=== PATIENT | male | born 1990 | race Caucasian/White ===

== ENCOUNTER 2019-01-29 23:04 | Emergency (ER) | payer SELFPAY ==
[2019-01-29 23:10] VITALS: BP 140/84; PULSE 100; TEMP 98; BMI 31.3
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
[2019-01-30] MEDS ORDERED: ACETAMINOPHEN 500 MG TABLET (FP) PO ONE (00:11)
--- NOTE | 2019-01-30 00:13 | PDOC ---
Attending Attestation - Resident Resident Name: Melecio Adan - ED Attending Attestation I have performed the following: I have examined & evaluated the patient, The case was reviewed & discussed with the resident, I agree w/resident's findings & plan, Exceptions are as noted - HPI HPI: 01/30/19 00:12 R hamstring px after soccer injury - Physicial Exam PE: 01/30/19 00:13 Agree with exam as documented by resident - Medical Decision Making 01/30/19 00:13 Bony injury unlikely, possible tendon strain/sprain Imaging not indicated analgesia
[2019-01-30] MEDS ORDERED: ACETAMINOPHEN 325 MG TABLET (FP) ONE (00:14)
== END 2019-01-30 00:23 | disposition home or self-care (01) ==
LOC: JER 23:04
DX: S76.812A Strain of other specified muscles, fascia and tendons at thigh level, left thigh, initial encounter (principal); W18.39XA Other fall on same level, initial encounter; Y93.66 Activity, soccer; Y92.322 Soccer field as the place of occurrence of the external cause; Y99.8 Other external cause status
CPT/HCPCS: 99283-25